=== PATIENT | male | born 1995 | race Caucasian/White ===

== ENCOUNTER 2017-03-13 19:37 | Emergency (ER) | payer MEDICAID ==
[~2017-03-13] VITALS: Ht 177.8 cm; Wt 67.1 kg
[2017-03-13 20:26] VITALS: BP 152/72
--- NOTE | 2017-03-13 21:27 | NUR ---
TO ER OF1
--- NOTE | 2017-03-13 21:45 | NUR ---
pt bib family C/O RLQ ABDOMINAL PAIN WITH N/V X 4 HRS. N/V GREEN EMESIS X 10 , NO MEDICAL HX. PT DENIES ANY TRAUMA, SKIN IS INTACT, PALE/WARM/DRY; AAOX4, PERRL, WITH EVEN AND STEADY GAIT; LUNGS CLEAR BL, BREATHING UNLABORED; HR EVEN AND REGULAR, BL PERIPHERAL PULSES PRESENT; BS ACTIVE X4, MILD TENDERNESS TO PALPATION. RESONANT TO PERCUSSION; PT DENIES ANY FEVER, CP, SOB, OR COUGH AT THIS TIME; PT STATES 3/10 PAIN AT THIS TIME; VSS; PATIENT POSITIONED FOR COMFORT; HOB ELEVATED; BEDRAILS UP X2; BED DOWN.
[2017-03-13] MEDS: KETOROLAC 60 MG/2 ML VIAL IM ONE (21:58)
[2017-03-13] MEDS: ONDANSETRON 4 MG/2 ML VIAL IM ONE (21:59)
--- NOTE | 2017-03-13 22:13 | NUR ---
PO WATER GIVEN-NO N/V AT THIS TIME
--- NOTE | 2017-03-13 22:15 | NUR ---
Zoie gonzalez in [facility] - 03/13/17 at 2225 by MEDRJJ PO WATER GIVEN-NO N/V AT THIS TIME
[2017-03-13 22:20] VITALS: BP 142/70
--- NOTE | 2017-03-13 22:26 | NUR ---
Patient discharged with v/s stable. Written and verbal after care instructions given and explained. Patient alert, oriented and verbalized understanding of instructions. Ambulatory with steady gait. All questions addressed prior to discharge. ID band removed. Patient advised to follow up with PMD. Rx of ZOFRAN ODT 4MG, TYLENOL WITH CODEINE Q6HRS/PRN given. Patient educated on indication of medication including possible reaction and side effects. Opportunity to ask questions provided and answered.
== END 2017-03-13 22:20 | disposition home or self-care (01) ==
LOC: MED 19:37
DX: R10.9 Unspecified abdominal pain (principal); R11.2 Nausea with vomiting, unspecified; R50.9 Fever, unspecified; R03.0 Elevated blood-pressure reading, without diagnosis of hypertension; F12.10 Cannabis abuse, uncomplicated
CPT/HCPCS: 74176; 96372; 99284; J1885; J2405